=== PATIENT | female | born 1980 | race Caucasian/White ===

== ENCOUNTER → 2017-01-07 | Outpatient (CLI) | payer OTHER | LOC: WI 13:53 | DX: M81.0 Age-related osteoporosis without current pathological fracture (principal) | CPT/HCPCS: 77080 ==

== ENCOUNTER → 2019-01-27 | Outpatient (CLI) | payer OTHER ==
--- NOTE | 2019-01-27 12:21 | WOMENS IMAGING REPORT ---
EXAM DESCRIPTION: BILAT SCREENING MAMMO W/CAD COMPLETED DATE/TIME: 01/27/2019 10:21 am REASON FOR STUDY: Z12.31 ROUTINE BILATERAL SCREENING Z12.31 ENCNTR SCREEN MAMMOGRAM FOR MALIGNANT N EOPLASM OF SERGE COMPARISON: None. TECHNIQUE: Standard craniocaudal and mediolateral oblique views of each breast recorded using digita l acquisition. Additional "push-back" craniocaudal and mediolateral oblique images acquired. LIMITATIONS: None. FINDINGS: IMPLANTS: Bilateral subglandular implants. Findings present which are benign by mammographic criteria. No suspicious masses, calcifications or architectural distortion. Read with the assistance of CAD. .[facility] - R2 Cenova Version 1.3 .[facility] Imaging - R2 Cenova Version 2.1 .[facility] - R2 Cenova Version 2.[address] - R2 Cenova Version 2.4 .[facility], [facility] - R2 [employer] Version 9.2 Benign mammographic findings may include one or more of the following: Smooth masses, popcorn/rim/co arse calcifications, asymmetries, post-procedure changes, and lesions with long-standing stability. IMPRESSION: BENIGN MAMMOGRAPHIC FINDINGS. BIRADS 2 BREAST DENSITY: b. There are scattered areas of fibroglandular density. BIRAD: 2 BENIGN FINDING(S) RECOMMENDATION: ROUTINE SCREENING COMMENT: The patient has been notified of the results by letter per SA requirements. Additional no tification policies are in place for contacting patient with suspicious or incomplete findings. Quality ID #[id number]: The [employer] recommends an annual screening mammogram for women aged 40 years or over. This facility utilizes a reminder system to ensure that all patients receive reminder letters, and/or direct phone calls for appointments. This includes reminders for routine scr eening mammograms, diagnostic mammograms, or other Breast Imaging Interventions when appropriate. Th is patient will be placed in the appropriate reminder system. The [employer] (ACR) has developed recommendations for screening MRI of the breast s in certain patient populations, to be used in conjunction with mammography. Breast MRI surveillanc e may be appropriate for women with more than 20% lifetime risk of developing breast cancer as deter mined by genetic testing, significant family history of the disease, or history of mantle radiation f or Hodgkins Disease. ACR Practice Guidelines 2008. TECHNICAL DOCUMENTATION: FINDING NUMBER: (1) ASSESSMENT: (1) JOB ID: [id number] [employer]- All Rights Reserved Reading location - IP/workstation name: [email or web address]
== END ==
LOC: WI 09:44
PROVIDERS: ATTEND Physician Assistant Medical
DX: Z12.31 Encounter for screening mammogram for malignant neoplasm of breast (principal)
CPT/HCPCS: 77067

== ENCOUNTER 2019-08-20 19:15 | Emergency (ER) | payer OTHER ==
--- NOTE | 2019-08-20 19:50 | ER Document Report ---
ED Medical Screen (RME) - General Chief Complaint: Suicidal Ideation Stated Complaint: PSYCH EVAL/POSSIBLE OVERDOSE Time Seen by Provider: 08/20/19 19:45 Primary Care Provider: TOLU ANSARI PA [Primary Care Provider] - Follow up as needed Mode of Arrival: Ambulatory Information source: Patient Notes: 38-year-old female presented to ED for complaint of having bad thoughts at home. She states she called the mental health hotline to get some support. She states the mental health hotline backtracked called the police and they came and talked with her. She also talked with Dr. Delgadillo on the phone. She states she was willing to come into the emergency room and be evaluated. According to the chief of police with the patient Dr. Delgadillo is the line out paperwork. She states she is depressed and sad due to the coming up events but she states she would not kill herself. She has a daughter to live for. I have greeted and performed a rapid initial assessment of this patient. A comprehensive ED assessment and evaluation of the patient, analysis of test results and completion of medical decision making process will be conducted by an additional ED providers. TRAVEL OUTSIDE OF THE [place] IN LAST 30 DAYS: No Physical Exam - Vital signs Vitals: Temp Pulse Resp BP Pulse Ox 97.8 F 138 H 12 110/88 H 98 08/20/19 19:27 08/20/19 19:27 08/20/19 19:27 08/20/19 19:27 08/20/19 19:27 Course - Vital Signs Vital signs: Temp Pulse Resp BP Pulse Ox 97.8 F 138 H 12 110/88 H 98 08/20/19 19:27 08/20/19 19:27 08/20/19 19:27 08/20/19 19:27 08/20/19 19:27 Doctor's Discharge - Discharge Referrals: TOLU ANSARI PA [Primary Care Provider] - Follow up as needed
[2019-08-20 20:26] LABS: ABSOLUTE BASOPHILS # (AUTO) 0.1 10^3/uL (0.0-0.2); ABSOLUTE EOSINOPHILS # (AUTO) 0.1 10^3/uL (0.0-0.6); ABSOLUTE LYMPHOCYTES (AUTO) 3.1 10^3/uL (0.5-4.7); ABSOLUTE MONOCYTES (AUTO) 0.6 10^3/uL (0.1-1.4); ABSOLUTE NEUT (AUTO) 5.2 10^3/uL (1.7-8.2); BASOPHILS % (AUTO) 1.5 % (0-2); EOSINOPHILS % (AUTO) 1.4 % (0-6); HEMATOCRIT 39.8 % (36.0-47.0); HEMOGLOBIN 13.8 g/dL (12.0-15.5); MEAN CORPUSCULAR HEMOGLOBIN 34.2 pg (27.0-33.4); MEAN CORPUSCULAR HGB CONC 34.6 g/dL (32.0-36.0); MEAN CORPUSCULAR VOLUME 99 fl (80-97); MONOCYTES % (AUTO) 6.1 % (3-13); PLATELET COUNT 253 10^3/uL (150-450); RED BLOOD COUNT 4.04 10^6/uL (3.72-5.28); RED CELL DISTRIBUTION WIDTH 14.3 % (11.5-14.0); TOTAL CELLS COUNTED % (AUTO) 100 %; WHITE BLOOD COUNT 9.1 10^3/uL (4.0-10.5)
[2019-08-20 20:31] LABS: APPEARANCE,URINE CLEAR; BILIRUBIN,URINE NEGATIVE (NEGATIVE); COLOR,URINE STRAW; GLUCOSE, URINE NEGATIVE (NEGATIVE); KETONES,URINE NEGATIVE (NEGATIVE); LEUKOCYTE ESTERASE,URINE SMALL (NEGATIVE); NITRITE,URINE NEGATIVE (NEGATIVE); PROTEIN,URINE NEGATIVE (NEGATIVE); URINE SPECIFIC GRAVITY 1.004; UROBILINOGEN,URINE NEGATIVE mg/dL (<2.0)
[2019-08-20 20:44] LABS: ALBUMIN 4.7 g/dL (3.5-5.0); ALCOHOL 145 mg/dL (NONE DETECTED); ALKALINE PHOSPHATASE 101 U/L (38-126); ANION GAP 15 (5-19); ASPARTATE AMINO TRANSFERASE 27 U/L (14-36); BILIRUBIN,DIRECT 0.2 mg/dL (0.0-0.4); BILIRUBIN,TOTAL 0.2 mg/dL (0.2-1.3); BLOOD UREA NITROGEN 11 mg/dL (7-20); CALCIUM 9.4 mg/dL (8.4-10.2); CARBON DIOXIDE 21 mmol/L (22-30); CHLORIDE 107 mmol/L (98-107); GLUCOSE 102 mg/dL (75-110); POTASSIUM 4.3 mmol/L (3.6-5.0); URINE AMPHETAMINES SCREEN NEGATIVE; URINE BARBITURATES SCREEN NEGATIVE; URINE BENZODIAZEPINES SCREEN NEGATIVE; URINE COCAINE SCREEN NEGATIVE; URINE MARIJUANA (THC) SCREEN NEGATIVE; URINE METHADONE SCREEN NEGATIVE; URINE PHENCYCLIDINE SCREEN NEGATIVE
[2019-08-20 20:46] LABS: ACETAMINOPHEN < 10 ug/mL (10-30); SALICYLATE < 1.0 mg/dL (2.0-20.0)
[2019-08-20] MEDS ORDERED: VENLAFAXINE HCL 37.5 MG CAP.SR.24H PO ONE (21:30)
[2019-08-20] MEDS ORDERED: BUSPIRONE HCL 10 MG TABLET PO ONE (21:30)
[2019-08-20] MEDS ORDERED: CLONIDINE HCL 0.1 MG TABLET PO ONE (21:30)
[2019-08-20] MEDS ORDERED: TRAZODONE HCL 50 MG TABLET PO ONE (21:31)
--- NOTE | 2019-08-20 21:52 | EKG REPORT ---
SEVERITY:- OTHERWISE NORMAL ECG - SINUS TACHYCARDIA : Confirmed by: Joaquín Garcia MD 20-Aug-2019 21:52:13
[2019-08-20] MEDS ORDERED: NORMAL SALINE 1000 ML 1,000 ML IV ONE (22:09)
--- NOTE | 2019-08-21 02:12 | ER Document Report ---
Entered by LONI DORANTES SCRIBE 08/20/192058 Acting as scribe for:REGINALD KNIGHT DO ED Psych Disorder / Suicide - General Chief Complaint: Suicidal Ideation Stated Complaint: PSYCH EVAL/POSSIBLE OVERDOSE Time Seen by Provider: 08/20/19 19:45 Primary Care Provider: TOLU ANSARI PA [Primary Care Provider] - Follow up as needed Mode of Arrival: Ambulatory Information source: Patient Notes: Patient is a 38-year-old female that presents to the emergency department today with complaints of depression. Patient states [place] and "seeing the [employer] uniforms got her depressed". Patient states that she went back home and watched [employer] movies which caused her to become more depressed. Patient states she called the crisis line who then alerted the police. Patient was brought in by MAXINE on IVC paperwork. TRAVEL OUTSIDE OF THE [place] IN LAST 30 DAYS: No - Related Data Allergies/Adverse Reactions: prochlorperazine [From Compazine] Allergy (Verified 08/20/19 19:47) Home Medications: seroquel trazadone and ambien Past Medical History - General Information source: Patient - Social History Smoking Status: Never Smoker Cigarette use (# per day): No Chew tobacco use (# tins/day): No Frequency of alcohol use: Occasional Drug Abuse: None Lives with: Family Family History: Reviewed & Not Pertinent Patient has suicidal ideation: No Patient has homicidal ideation: No Psychiatric Medical History: Reports: Hx Depression Review of Systems - Review of Systems Constitutional: No symptoms reported EENT: No symptoms reported Cardiovascular: No symptoms reported Respiratory: No symptoms reported Gastrointestinal: No symptoms reported Genitourinary: No symptoms reported Female Genitourinary: No symptoms reported Musculoskeletal: No symptoms reported Skin: No symptoms reported Hematologic/Lymphatic: No symptoms reported Neurological/Psychological: See HPI, Depression, Suicidal ideation -: Yes All other systems reviewed and negative Physical Exam - Vital signs Vitals: Temp Pulse BP Pulse Ox 97.8 F 138 H 110/88 H 97 08/20/19 19:25 08/20/19 19:25 08/20/19 19:25 08/20/19 19:25 Interpretation: Normal - General General appearance: Appears well, Alert - HEENT Head: Normocephalic, Atraumatic Eyes: Normal Pupils: PERRL - Respiratory Respiratory status: No respiratory distress Chest status: Nontender Breath sounds: Normal Chest palpation: Normal - Cardiovascular Rhythm: Regular Heart sounds: Normal auscultation Murmur: No - Abdominal Inspection: Normal Distension: No distension Bowel sounds: Normal Tenderness: Nontender Organomegaly: No organomegaly - Back Back: Normal, Nontender - Extremities General upper extremity: Normal inspection, Nontender, Normal color, Normal ROM, Normal temperature General lower extremity: Normal inspection, Nontender, Normal color, Normal ROM, Normal temperature, Normal weight bearing. No: Danilo's sign - Neurological Neuro grossly intact: Yes Cognition: Normal Orientation: AAOx4 Karan Coma Scale Eye Opening: Spontaneous Karan Coma Scale Verbal: Oriented Karan Coma Scale Motor: Obeys Commands Karan Coma Scale Total: 15 Speech: Normal Motor strength normal: LUE, RUE, LLE, RLE Sensory: Normal - Psychological Associated symptoms: Normal mood, Flat affect - Skin Skin Temperature: Warm Skin Moisture: Dry Skin Color: Normal Course - Re-evaluation Re-evalutation: 08/21/19 Patient is a 38-year-old female who called a helpline because she is feeling depressed and suicidal. Brought in by law enforcement. Patient has been evaluated by mental health and placed on involuntary commitment paperwork. She is otherwise medically stable. Some alcohol intoxication noted. Patient is pleasant and willing to stay here tonight. Will be reevaluated by mental health in the morning. - Vital Signs Vital signs: Temp Pulse Resp BP Pulse Ox 97.6 F 105 H 16 91/59 L 96 08/20/19 20:52 08/20/19 20:52 08/20/19 20:52 08/20/19 20:52 08/20/19 20:52 - Laboratory Result Diagrams: 08/20/19 20:07 08/20/19 20:07 Laboratory results interpreted by me: 08/20/19 08/20/19 08/20/19 20:07 20:07 20:07 MCV 99 H MCH 34.2 H RDW 14.3 H Carbon Dioxide 21 L Ur Leukocyte Esterase SMALL H Salicylates < 1.0 L Acetaminophen < 10 L Discharge - Discharge Clinical Impression: Depression Qualifiers: Depression Type: unspecified Qualified Code(s): F32.9 - Major depressive d isorder, single episode, unspecified Alcohol intoxication Qualifiers: Complication of substance-induced condition: uncomplicated Qualified Code(s): F10.920 - Alcohol use, unspecified with intoxication, uncomplicated Condition: Stable Disposition: OTHER Referrals: TOLU ANSARI PA [Primary Care Provider] - Follow up as needed I personally performed the services described in the documentation, reviewed and edited the documentation which was dictated to the scribe in my presence, and it accurately records my words and actions.
--- NOTE | 2019-08-21 09:45 | PSYCHOLOGICAL NOTE ---
Psych Note - Psych Note Date seen by psych provider: 08/21/19 Time seen by psych provider: 08:05 Psych Note: Reason for Consult: suicidal ideation Consent permissions: Con, 38-year-old female presented to ED for complaint of having bad thoughts at home. She states she called the mental health hotline to get some support. She states the mental health hotline backtracked called the police and they came and talked with her. Patient disclosed that she has significant difficulties with her anxiety in addition to identity crisis issues now that she is retired from the . She reports the was "my calling" and while she is 100% [place] medically retired, she still feels as if she failed. She identifies this because she only made it 17 years instead of finishing out 20 years. She discloses that it has been difficult to staying in the local area because the base so she typically stays away from going on base knowing that this can be a trigger for her. She reports that she stays in the local area for her daughter who is 19 years old in college. She identifies that yesterday she had to go on base to make a star card payment and feels this, in addition to receiving multiple emails and text messages from friends and loved ones about the upcoming veterans holiday triggered her increase of depression. She reports that she was feeling "really down" so reached out to the crisis line because her outpatient mental h [facility] provider has always reinforced reaching out to the crisis line. Patient identifies that when she did reach out to the crisis line she was crying significantly and was honest about her feelings with them. After hanging up, please showed up at her door. She discloses that she would "never do anything to hurt myself, I have my daughter I would never do that." She continued to report that she is currently from her however he lives across the street, they speak multiple times a day and identifies him as her strongest support. She disclosed the [facility] to the local community so she had a provider that could see her more frequently. Patient currently receives both medication management and therapy at [facility]. She reports that she drinks a couple times a week however does not typically like to drink because she is unable to take her medication when she drinks. Patient confirms she did take her evening medication last night and identifies taking 2 of her Ambien because 1 is not enough. Clinician notes patient was surprised on her (BAL) blood alcohol level. Clinician conducted psychoeducation on alcohol and prescription medication misuse. Clinician spoke with patient's who reports that the patient goes through depression spells because of having to get out of the and dealing with her cancer and hysterectomy. He reports that the patient has "ups and downs like everyone." He disclosed that he saw her yesterday and spoke to her multiple times throughout the day and was in good spirits. He reports that she did states she had to go on base to pay a bill and knows that she avoids going on base because this can be a trigger for her. He reports that towards the end of the day she was starting to put herself down so he attempted to reinforce positive self talk. "She thinks that she is failed because she did not make a 20 years but I do not see it that way and I tried to remind her of that." He denies any concerns of the patient harming herself however identifies concern that the patient has to use sleeping medication; "she has difficulty sleeping so takes meds and I do not think that is great but I am not a doctor." He reports they are currently right now so does not know how much the patient is currently drinking however states that his never was an issue in the past. Patient is alert and orientated to person, place, time and circumstance. Mood is euthymic with congruent affect as evidenced by smiling engaging with clinician. Patient denies suicidal and homicidal ideation. Delusions are absent and behaviors congruent with an intact reality based presentation i.e. organized and linear thought process. Eye contact is well-maintained. Conversational speech is within normal rate, tone and prosody. Intellectual abilities appear to be within the average range. Attention and concentration are good. Insight, judgment, impulse control are fair. check in was conducted with patient; at bedside per patient's request Patient provides consent for the to go to her home to ensure all old prescriptions are removed. He confirms he would like to be part of patient's pl an of care i.e. no access to medications weapons and follow through with mental health recommendations. Clinician conducted psychoeducation on the importance of taking medications as directed and to refrain from alcohol. Patient confirms he will move back into the home to assist the patient. Patient reports tomorrow she returned to work which will assist in decreasing time alone. She c ontinued to disclose that on Friday she plans to go to [place] with friends so she is not alone throughout the holiday. Patient also has plans of going to [place] September 10 for her grandmother's birthday democrat. Diagnosis: Posttraumatic stress disorder per history provided by patient Medication recommendations per [facility]'s contracted psychiatrist Dr. Lea MAURICIO are as follows Please discontinue Ambien, Seroquel and trazodone please decrease Cymbalta to 30mg daily for 7 days then discontinue Please start Effexor 37.5mg daily for 7 days then increase to twice daily Please start Zyprexa 2.5 mg twice daily prazosin 1 mg nightlydue to not having prazosin in hospital formulary can be replaced with clonidine 1 mg nightly BuSpar 5 mg every morning and 10 mg nightly Impression\\plan: Patient is recommended for rescind of IVC and is cleared from acute psychiatric services. Patient presented after increased in depression from yearly stressor i.e. one year anniversary of medical discharge from the and . Patient demonstrated forward thinking and identifying both plan of care and future plans. Patient's discloses wanting to be part of patient's plan of care i.e. no access to medications weapons and follow through with mental health recommendations. He confirms to move back into the home to assist the patient and reports he will ensure the patient does not have access to old prescription medications. New medication recommendations have been provided. Patient is recommended to follow-up with outpatient mental health services for both medication management and therapeutic services. Dr. Delgadillo was consulted to care management of this patient; attending physicians in agreement with recommendations and disposition.
[2019-08-21 13:22] LABS: FREE T3 3.38 pg/mL (2.77-5.27); FREE T4 (FREE THYROXINE) 1.07 ng/dL (0.78-2.19)
[2019-08-21 13:36] LABS: THYROID STIMULATING HORMONE 4.51 uIU/mL (0.47-4.68)
[2019-08-21 14:24] VITALS: BP 113/82
== END 2019-08-21 15:11 | disposition home or self-care (01) ==
LOC: ER 19:15
DX: F43.10 Post-traumatic stress disorder, unspecified (principal); R45.851 Suicidal ideations; F10.120 Alcohol abuse with intoxication, uncomplicated; F32.9 Major depressive disorder, single episode, unspecified; Z79.899 Other long term (current) drug therapy; Z63.5 Disruption of family by separation and divorce; Z88.8 Allergy status to other drugs, medicaments and biological substances
CPT/HCPCS: 93005; 99285; 96360; 96361; 36415; 84439; 80307 ×4; 84443; 84703; 85025; 80053; 81001; 84481; 93010; J3490; J7030

== ENCOUNTER 2019-11-12 10:47 | Emergency (ER) | payer OTHER ==
[2019-11-12] MEDS ORDERED: ONDANSETRON 4 MG TAB.RAPDIS PO ONE (11:21)
[2019-11-12] MEDS ORDERED: PREDNISONE 20 MG TABLET PO ONE (11:21)
[2019-11-12] MEDS ORDERED: IPRATROPIUM/ALBUTEROL 0.5-2.5 MG/3 ML AMPUL NEB ONE ×2 (11:21→14:11)
--- NOTE | 2019-11-12 11:23 | ER Document Report ---
ED Medical Screen (RME) - General Chief Complaint: Flu Symptoms Stated Complaint: COUGHING/CONGESTION/FEVER Time Seen by Provider: 11/12/19 11:15 Primary Care Provider: TOLU ANSARI PA [Primary Care Provider] - Follow up as needed Information source: Patient Notes: Patient presents complaining of cough for the past 5 days. Patient states that she has had shortness of breath with chest pain and blood in her sputum. Patient also reports nausea vomiting and diarrhea. Patient was seen in urgent care 4 days ago and placed on amoxicillin. Patient states because of the vomiting she does not feel that she has been able to keep the medications down. I have greeted and performed a rapid initial assessment of this patient. A comprehensive ED assessment and evaluation of the patient, analysis of test results and completion of the medical decision making process will be conducted by additional ED providers. TRAVEL OUTSIDE OF THE U.S. IN LAST 30 DAYS: No - Related Data Allergies/Adverse Reactions: prochlorperazine [From Compazine] Allergy (Verified 08/20/19 19:47) Past Medical History Psychiatric Medical History: Reports: Hx Depression Physical Exam - Vital signs Vitals: Temp Pulse Resp BP Pulse Ox 99.4 F 105 H 16 128/83 H 96 11/12/19 11:06 11/12/19 11:06 11/12/19 11:06 11/12/19 11:06 11/12/19 11:06 - Respiratory Respiratory status: No respiratory distress Breath sounds: Productive cough, Wheezing - Cardiovascular Rhythm: Tachycardia Heart sounds: S1 appreciated, S2 appreciated Course - Vital Signs Vital signs: Temp Pulse Resp BP Pulse Ox 99.4 F 105 H 16 128/83 H 96 11/12/19 11:06 11/12/19 11:06 11/12/19 11:06 11/12/19 11:06 11/12/19 11:06 Doctor's Discharge - Discharge Referrals: TOLU ANSARI PA [Primary Care Provider] - Follow up as needed
--- NOTE | 2019-11-12 12:10 | RADIOLOGY REPORT (SQ) ---
EXAM DESCRIPTION: CHEST 2 VIEWS COMPLETED DATE/TIME: 11/12/2019 11:59 am REASON FOR STUDY: cough, blood in sputum COMPARISON: None. EXAM PARAMETERS: NUMBER OF VIEWS: two views TECHNIQUE: PA and lateral views of the chest were obtained. RADIATION DOSE: NA LIMITATIONS: none FINDINGS: LUNGS AND PLEURA: No consolidation, pleural effusion or pneumothorax. MEDIASTINUM AND HILAR STRUCTURES: No mediastinal or hilar contour abnormality. HEART AND VASCULAR STRUCTURES: The cardiac silhouette and pulmonary vasculature are within normal gauthier its. BONES: No acute findings. HARDWARE: None in the chest. OTHER: No other finding. IMPRESSION: No acute cardiopulmonary process. TECHNICAL DOCUMENTATION: JOB ID: [id number]- All Rights Reserved Reading location - IP/workstation name: [email or web address]
[2019-11-12 12:18] LABS: ABSOLUTE LYMPHOCYTES (AUTO) 0.8 10^3/uL (0.5-4.7); ABSOLUTE MONOCYTES (AUTO) 0.7 10^3/uL (0.1-1.4); ABSOLUTE NEUT (AUTO) 5.2 10^3/uL (1.7-8.2); BASOPHILS % (AUTO) 0.6 % (0-2); EOSINOPHILS % (AUTO) 0.6 % (0-6); HEMATOCRIT 42.2 % (36.0-47.0); HEMOGLOBIN 14.9 g/dL (12.0-15.5); MEAN CORPUSCULAR HEMOGLOBIN 35.9 pg (27.0-33.4); MEAN CORPUSCULAR HGB CONC 35.3 g/dL (32.0-36.0); MEAN CORPUSCULAR VOLUME 102 fl (80-97); MONOCYTES % (AUTO) 9.6 % (3-13); PLATELET COUNT 219 10^3/uL (150-450); RED BLOOD COUNT 4.15 10^6/uL (3.72-5.28); SEGMENTED NEUTROPHILS % (AUTO) 77.2 % (42-78); TOTAL CELLS COUNTED % (AUTO) 100 %; WHITE BLOOD COUNT 6.8 10^3/uL (4.0-10.5)
[2019-11-12 12:47] LABS: ALBUMIN 4.9 g/dL (3.5-5.0); ALKALINE PHOSPHATASE 125 U/L (38-126); ANION GAP 14 (5-19); ASPARTATE AMINO TRANSFERASE 60 U/L (14-36); BILIRUBIN,DIRECT 0.4 mg/dL (0.0-0.4); BILIRUBIN,TOTAL 0.5 mg/dL (0.2-1.3); BLOOD UREA NITROGEN 11 mg/dL (7-20); CARBON DIOXIDE 25 mmol/L (22-30); CHLORIDE 99 mmol/L (98-107); GLUCOSE 102 mg/dL (75-110); POTASSIUM 4.9 mmol/L (3.6-5.0); TOTAL PROTEIN 8.6 g/dL (6.3-8.2)
--- NOTE | 2019-11-12 13:39 | ER Document Report ---
ED General - General Chief Complaint: Cold Symptoms Stated Complaint: COUGHING/CONGESTION/FEVER Time Seen by Provider: 11/12/19 11:15 Primary Care Provider: TOLU ANSARI PA [Primary Care Provider] - Follow up in 3-5 days TRAVEL OUTSIDE OF THE [place] IN LAST 30 DAYS: No - HPI Notes: 39-year-old female to the emergency department with complaints of productive cough with blood-streaked sputum, shortness of breath, chest congestion, chest pain, fevers that have been ongoing since Friday. She states that she started to feel poorly on Friday and on Friday she decided to see a physician at urgent care. She states she was placed on amoxicillin and given Tessalon for cough. However she is gotten worse since then. She states she has had a fever T-max of 101. She states that she coughs so hard that she will vomit. She denies any diarrheas. She used to be on a topical hormonal patch several months ago but has not been on it recently. She takes no other oral contraceptives or hormone replacement therapy. She does not have any female organs as she had precancerous cells on her cervix. She states that she has never actually been diagnosed with neo cancer.. She states that when she tries to lay flat she feels very short of breath and congested and cannot rest at all at night. She states that she has not recently been on long distance travel or had recent moeller rgery. She states that she is never had a clot in her legs. - Related Data Allergies/Adverse Reactions: prochlorperazine [From Compazine] Allergy (Verified 11/12/19 11:29) Home Medications: amoxicillian. steriod tritrate pack 4th day Past Medical History - General Information source: Patient - Social History Smoking Status: Never Smoker Frequency of alcohol use: Occasional Drug Abuse: None Lives with: Family Family History: Reviewed & Not Pertinent Patient has suicidal ideation: No Patient has homicidal ideation: No Psychiatric Medical History: Reports: Hx Depression Review of Systems - Review of Systems Constitutional: Chills, Fever, Malaise EENT: Nose congestion, Throat pain. denies: Ear pain Cardiovascular: See HPI, Chest pain. denies: Dyspnea, Syncope, Dizziness, Lightheaded Respiratory: See HPI, Cough, Hemoptysis, Short of breath Gastrointestinal: See HPI, Nausea, Vomiting. denies: Abdominal pain, Diarrhea Genitourinary: No symptoms reported Female Genitourinary: No symptoms reported Musculoskeletal: Muscle pain - Body aches Skin: No symptoms reported Hematologic/Lymphatic: No symptoms reported Neurological/Psychological: No symptoms reported -: Yes All other systems reviewed and negative Physical Exam - Vital signs Vitals: Temp Pulse Resp BP Pulse Ox 99.4 F 105 H 16 128/83 H 96 11/12/19 11:06 11/12/19 11:06 11/12/19 11:06 11/12/19 11:06 11/12/19 11:06 Interpretation: Normal - General General appearance: Alert In distress: None Notes: Patient appears like she does not feel well but she is not in any acute distress - HEENT Head: Normocephalic, Atraumatic Eyes: Normal Pupils: PERRL Ears: Normal External canal: Normal Tympanic membrane: Normal. No: Hemotympanum, Injected, Perforation, Purulent ef fusion, Retracted, Serous effusion Sinus: Normal Nasal: Other - Positive allergic salute. Bilateral nares are erythematous and edematous. It is evident that patient has been blowing her nose quite a bit. Mouth/Lips: Normal Mucous membranes: Normal Pharynx: Erythema - There is posterior oropharyngeal erythema without exudates. There is no Hans's angina; there is no drooling. There is no voice change. Airway is grossly patent. No: Peritonsillar abscess, Retropharyngeal abscess, Tonsillar hypertrophy - ., Uvular edema, Potential airway comprom. Neck: Normal, Supple. No: Lymphadenopathy, Meningismus - Respiratory Respiratory status: No respiratory distress. No: Tachypnea Chest status: Tender - Mild tenderness to palpation over the chest wall with no crepitus or step-off., Pain on movement, Pain with cough, Pain with deep breathing - Poor inspiratory effort due to pain with big deep breath. No: Accessory muscle use Breath sounds: Decreased air movement. No: Rales, Rhonchi, Stridor, Wheezing Chest palpation: Normal - Cardiovascular Rhythm: Regular Heart sounds: Normal auscultation Murmur: No Notes: No pitting edema - Abdominal Inspection: Normal Distension: No distension Bowel sounds: Normal Tenderness: Nontender. No: Tender, McBurney's point, Griffin's sign, Guarding, Rebound Organomegaly: No organomegaly - Back Back: Normal, Nontender. No: CVA tenderness - Extremities General upper extremity: Normal inspection, Nontender, Normal color, Normal ROM, Normal temperature General lower extremity: Normal inspection, Nontender, Normal color, Normal ROM, Normal temperature, Normal weight bearing. No: Danilo's sign - Neurological Neuro grossly intact: Yes Cognition: Normal Orientation: AAOx4 Karan Coma Scale Eye Opening: Spontaneous Karan Coma Scale Verbal: Oriented Karna Coma Scale Motor: Obeys Commands Karan Coma Scale Total: 15 Speech: Normal Cranial nerves: Normal Cerebellar coordination: Normal Motor strength normal: LUE, RUE, LLE, RLE Additional motor exam normals: Equal accident report clerk Sensory: Normal - Psychological Associated symptoms: Normal affect, Normal mood - Skin Skin Temperature: Warm Skin Moisture: Dry Skin Color: Normal Course - Re-evaluation Re-evalutation: Patient to the emergency department with progressively worsening cough, fever, chest pain, shortness of breath. She is slightly tachypneic when she came in as well as tachycardic. She has decreased breath sounds throughout but is not wheezing or having any rhonchi. Noted lab work which is fairly reassuring and chest x-ray is negative. She has low risk for DVT/PE however she cannot rule out for PERC score because of her tachycardia and tachypnea. Will run d-dimer and if elevated proceed with CTA. Noted d-dimer just out of range. We will go ahead and order CTA of the chest. Patient is feeling better after breathing treatments steroids Noted CTA reading which is negative for PE or any other acute cardiopulmonary process. Likely this is a flu syndrome-she is out of range for Tamiflu. Do not think that testing patient for the flu will add any benefit to her work-up here today. Do not think that antibiotics or changing her antibiotics will make her symptoms improve. I have encouraged her to complete the steroid Dosepak that she was given at urgent care. We will send her home with cough medicine that will help her rest. I have encouraged her to push fluids such as Gatorade, Pedialyte. I will have her follow-up with her primary care physician. She is to return immediately if any worsening symptoms such as worsening chest pain, significantly short of breath, passing out, any other concerning symptoms. Patient agrees with the plan. - Vital Signs Vital signs: Temp Pulse Resp BP Pulse Ox 98.8 F 85 14 115/81 98 11/12/19 17:32 11/12/19 17:32 11/12/19 17:32 11/12/19 17:32 11/12/19 17:32 - Laboratory Result Diagrams: 11/12/19 11:50 11/12/19 11:50 Laboratory results interpreted by me: 11/12/19 11/12/19 11/12/19 11:50 11:50 14:30 MCV 102 H MCH 35.9 H RDW 16.0 H Lymph % (Auto) 12.0 L D-Dimer 0.56 H AST 60 H Total Protein 8.6 H - Diagnostic Test Radiology reviewed: Image reviewed, Reports reviewed - EKG Interpretation by Me Additional EKG results interpreted by me: 11/12/19 Rate: 89, rhythm: Sinus, interpretation: No STEMI. Nonspecific T wave changes that are unchanged from prior on August 20, 2019. Normal axis, no LVH Discharge - Discharge Clinical Impression: Flu-like symptoms, Cough, Chest pain on respiration Condition: Stable Disposition: HOME, SELF-CARE Instructions: Cough Suppressant & Expectorant Medications, Influenza ([facility]) Additional Instructions: PUSH FLUIDS. REST AT HOME. FOLLOW UP WITH PRIMARY CARE. RETURN IF WORSE. Prescriptions: Albuterol Sulfate [Albuterol Sulfate Hfa] 2 puff IH Q4H #1 [email or web address] Hydrocodone/Chlorphen P-Stirex [Hydrocodone-Chlorpheniram Susp] 5 ml PO Q12 #60 ml Forms: Return to Work Referrals: TOLU ANSARI PA [Primary Care Provider] - Follow up in 3-5 days
[2019-11-12] MEDS ORDERED: NORMAL SALINE 1000 ML 1,000 ML IV ONE (14:10)
[2019-11-12 16:05] LABS: APPEARANCE,URINE CLEAR; BILIRUBIN,URINE NEGATIVE (NEGATIVE); COLOR,URINE YELLOW; GLUCOSE, URINE NEGATIVE (NEGATIVE); KETONES,URINE NEGATIVE (NEGATIVE); PROTEIN,URINE NEGATIVE (NEGATIVE); URINE SPECIFIC GRAVITY 1.011; UROBILINOGEN,URINE NEGATIVE mg/dL (<2.0)
--- NOTE | 2019-11-12 16:38 | RADIOLOGY REPORT (SQ) ---
EXAM DESCRIPTION: CTA CHEST COMPLETED DATE/TIME: 11/12/2019 4:20 pm REASON FOR STUDY: SOB, coughing up blood COMPARISON: PA and lateral views of the chest from 11/12/2019. TECHNIQUE: CT scan of the chest performed using helical scanning technique with dynamic intravenous contrast injection. Images reviewed with lung, soft tissue and bone windows. Reconstructed coronal and sagittal MPR images reviewed. Additional 3 dimensional post-processing performed to develop Maximal Intensity Projection images (ND P). All images stored on PACS. All CT scanners at this facility use dose modulation, iterative reconstruction, and/or weight based d osing when appropriate to reduce radiation dose to as low as reasonably achievable (ALARA). [facility]: Dose Right [facility]: CareDose [facility]: Dose Right [facility]: Teradose 4D [facility]: CV Ingenuity CONTRAST TYPE AND DOSE: Contrast/concentration: Isovue 350.00 mg/ml; Total Contrast Delivered: 59.0 ml; Total Saline Delivered: 80.0 ml Contrast bolus optimized for the pulmonary arteries. RENAL FUNCTION: Creatinine 0.85 milligrams/deciliter. RADIATION DOSE: CT Rad equipment meets quality standard of care and radiation dose reduction techniq ues were employed. CTDIvol: 9.9 - 14.3 mGy. DLP: 521 mGy-cm. . LIMITATIONS: None. FINDINGS: LUNGS AND PLEURA: The trachea main bronchi are patent. There is no consolidation, pleural effusion, ground-glass opacification, pleural effusion or pneumothorax. AORTA AND GREAT VESSELS: Evaluation is limited as the contrast bolus was optimized for evaluation of the pulmonary arteries. There is no thoracic aortic dissection or aneurysm. HEART: No cardiomegaly or pericardial effusion. PULMONARY ARTERIES: No pulmonary embolus. HILAR AND MEDIASTINAL STRUCTURES: No mass or adenopathy. HARDWARE: None in the chest. UPPER ABDOMEN: No acute findings. THYROID AND OTHER SOFT TISSUES: No masses or adenopathy. BONES: No acute findings. 3D MIPS: Confirm above findings. OTHER: Breast implants. IMPRESSION: No pulmonary embolus and no acute cardiopulmonary process. COMMENT: Quality ID # [id number]: Final reports with documentation of one or more dose reduction techniques (e.g., Automated exposure control, adjustment of the mA and/or kV according to patient size, use of iterative reconstruction technique) TECHNICAL DOCUMENTATION: JOB ID: [id number]- All Rights Reserved Reading location - IP/workstation name: [email or web address]
[2019-11-12 17:34] VITALS: BP 115/81
--- NOTE | 2019-11-12 17:42 | EKG REPORT ---
SEVERITY:- NORMAL ECG - SINUS RHYTHM : Confirmed by: Joaquín Garcia MD 12-Nov-2019 17:41:21
== END 2019-11-12 17:32 | disposition home or self-care (01) ==
LOC: ER 10:47
DX: J11.1 Influenza due to unidentified influenza virus with other respiratory manifestations (principal); R07.1 Chest pain on breathing; R04.2 Hemoptysis; R09.81 Nasal congestion; R50.9 Fever, unspecified; R06.02 Shortness of breath; R09.89 Other specified symptoms and signs involving the circulatory and respiratory systems; R53.81 Other malaise; R11.2 Nausea with vomiting, unspecified; Z88.8 Allergy status to other drugs, medicaments and biological substances
CPT/HCPCS: 93005; 94640 ×2; 99284; 96360; 36415; 83690; 85025; 80053; 81001; 85379; 71046; 71275; 93010; S0119; J7512; J7030; J7620

== ENCOUNTER 2020-05-07 22:34 | Emergency (ER) | payer OTHER ==
[2020-05-07] MEDS ORDERED: KETOROLAC TROMETHAMINE INJ/PF 30 MG/1 ML SDV IV ONE (23:35)
[2020-05-07] MEDS ORDERED: NORMAL SALINE 1000 ML 1,000 ML IV ONE (23:36)
--- NOTE | 2020-05-07 23:59 | ER Document Report ---
Entered by FRANCISCO CHENG SCRIBE 05/07/20 0158 Acting as scribe for:NAKUL PARKS IV, MD ED Extremity Problem, Upper - General Stated Complaint: FALL,SHOULDER PAIN Time Seen by Provider: 05/07/20 23:20 Primary Care Provider: TOLU ANSARI PA [Primary Care Provider] - Follow up as needed Mode of Arrival: Medic Information source: Patient Notes: This 39 year old female patient brought in by EMS presents to the ED today with complaints of right shoulder pain status post fall that occurred prior to arrival. Patient states she fell because of ETOH. She admits to drinking about x3-4 glasses of wine per ED nurse. Patient describes a "crunchy crystals" sensation when she moves her right arm. TRAVEL OUTSIDE OF THE [place] IN LAST 30 DAYS: No - Related Data Allergies/Adverse Reactions: prochlorperazine [From Compazine] Allergy (Verified 11/12/19 11:29) Past Medical History - General Information source: Patient - Social History Smoking Status: Unknown if Ever Smoked Smoking Education Provided: No Frequency of alcohol use: Social Family History: Reviewed & Not Pertinent Patient has suicidal ideation: No Patient has homicidal ideation: No Psychiatric Medical History: Reports: Hx Depression Review of Systems - Review of Systems Constitutional: No symptoms reported EENT: No symptoms reported Cardiovascular: No symptoms reported Respiratory: No symptoms reported Gastrointestinal: No symptoms reported Genitourinary: No symptoms reported Female Genitourinary: No symptoms reported Musculoskeletal: See HPI, Joint pain Skin: No symptoms reported Hematologic/Lymphatic: No symptoms reported Neurological/Psychological: No symptoms reported -: Yes All other systems reviewed and negative Physical Exam - Vital signs Vitals: Resp BP Pulse Ox 15 90/67 L 96 05/07/20 23:07 05/07/20 23:07 05/07/20 23:07 - General General appearance: Alert In distress: None - HEENT Head: Normocephalic, Atraumatic Eyes: Normal Pupils: PERRL - Respiratory Respiratory status: No respiratory distress Chest status: Nontender Breath sounds: Normal Chest palpation: Normal - Cardiovascular Rhythm: Regular Heart sounds: Normal auscultation Murmur: No Friction rub: No Gallop: None auscultated Normal capillary refill: Yes - < 2 seconds in digits of right hand - Abdominal Inspection: Normal Distension: No distension Bowel sounds: Normal Tenderness: Nontender - Abdomen soft Organomegaly: No organomegaly - Back Back: Normal, Nontender - Extremities General lower extremity: Normal inspection Shoulder: Limited ROM - No active motion in RUE, Other - Step-off noted to AC joint on the right side, Anterior fullness to right deltoid Hand: Other - Sensation and motor grossly intact to digits of right hand - Neurological Neuro grossly intact: Yes - Psychological Associated symptoms: Normal affect, Normal mood - Skin Skin Temperature: Warm Skin Moisture: Dry Skin Color: Normal Course - Re-evaluation Re-evalutation: 05/08/20 01:19 Results of ED MSE discussed with patient. All questions were answered prior to discharge. Emergency signs and symptoms, reasons to return to the emergency department discussed with patient. - Vital Signs Vital signs: Temp Pulse Resp BP Pulse Ox 98.7 F 18 94/77 L 98 05/07/20 23:33 05/08/20 00:31 05/08/20 00:31 05/08/20 00:31 - Diagnostic Test Radiology reviewed: Reports reviewed Procedures - Immobilization Right Arm Time completed: 02:00 - right humeral neck fracture Pre-Proc Neuro Vasc Exam: Normal Immobilizer type: Long arm posterior, Shoulder immobilizer Performed by: PCT Post-Proc Neuro Vasc Exam: Normal Alignment checked and good: Yes Discharge - Discharge Clinical Impression: Closed right humeral fracture Qualifiers: Encounter type: initial encounter Humerus Location: surgical neck Fracture morphology: unspecified fracture morphology Fracture alignment: displaced Qualified Code(s): S42.211A - Unspecified displaced fracture of surgical neck of right humerus, initial encounter for closed fracture Condition: Stable Disposition: HOME, SELF-CARE Instructions: Oral Narcotic Medication ([facility]) Additional Instructions: Return to the Emergency Department without delay if any worse. HOME CARE INSTRUCTIONS & INFORMATION: Thank you for choosing us for your medical needs. We hope you're satisfied with the care you received. After you leave, you must properly care for your problem and, at the same time, observe its progress. Any condition can change. Some illnesses can change rapidly over hours or days. If your condition worsens, return to the Emergency Department or see your physician promptly. ABOUT YOUR X-RAYS AND EKG'S: If you had an EKG or X-rays taken, they have been read by the Emergency Physician. The X-rays and EKG's will also be read by a Radiologist or Director Clinical Data within 24 hours. If discrepancies are noted, you will be notified by telephone. Please be certain the ED has a correct telephone number & address where you can be reached. Also, realize that some fractures or abnormalities do not show up on initial X-rays. If your symptoms continue, see your physician. ABOUT YOUR LABORATORY TEST: If you had laboratory tests, the results have been reviewed by the Emergency Physician. Some test results (for example cultures) may not be available for several days. You will be contacted if any test result shows you need additional treatment. Please be certain the ED has a correct telephone number and address where you can be reached. ABOUT YOUR MEDICATIONS: You will receive instructions on how to take your medicine on the prescription label you receive. Additional information may be provided by the Pharmacy. If you have questions afterwards, call the ED for clarification or further instructions. Some prescribed medications may cause drowsiness. Do not perform tasks such as driving a car or operating machinery without consulting your Pharmacist. If you feel you need a refill of pain medication, your condition will need re-evaluation. Please do not call for a refill of any medication. ABOUT YOUR SIGNATURE: Signature of this document acknowledges to followin. Understanding that you received emergency treatment and that you may be released before al medical problems are known or treated. Please be certain the ED has a correct phone number & address where you can be reached. 2. Acknowledgement that you will arrange for follow-up care as recommended. 3. Authorization for the Emergency Physician to provide information to your follow-up Physician in order to maximize your care. AT ANY TIME, IF YOUR SYMPTOMS CHANGE SIGNIFICANTLY OR WORSEN OR YOU DEVELOP NEW SYMPTOMS, RETURN TO THE EMERGENCY DEPARTMENT IMMEDIATELY FOR RE-EVALUATION. OUR GOAL IS TO PROVIDE EXCELLENT MEDICAL CARE! WE HOPE THAT WE HAVE MET YOUR EXPECTATIONS DURING YOUR EMERGENCY DEPARTMENT VISIT AND THAT YOU FEEL YOU HAVE RECEIVED EXCELLENT CARE! Fracture Proximal Humerus There is a fracture at the upper end of the humerus, near the shoulder joint. Your physician has assessed the fracture's severity and has determined that it will heal well without surgery or "setting." The typical shoulder fracture doesn't need a cast. It's best treated by binding the arm down with a special sling. Ice packs are used to reduce pain and swelling. After early healing has occurred, [id number] exercises are prescribed for the shoulder. Complete healing may take three to six weeks, depending on the age of the patient and the severity of the fracture. Call the doctor or return at once if the arm becomes numb, or if pain or swelling become severe. Prescriptions: Oxycodone HCl/Acetaminophen [Percocet 5-325 mg Tablet] 1 tab PO Q6HP PRN #20 tab PRN Reason: pain Referrals: TOLU ANSARI PA [Primary Care Provider] - Follow up as needed GARETH ENGEL MD [ACTIVE PROVISIONAL STAFF] - 05/08/20 (call Dr. Engel's office on 05/08/2020 to schedule follow up appointment) I personally performed the services described in the documentation, reviewed and edited the documentation which was dictated to the scribe in my presence, and it accurately records my words and actions.
[2020-05-08] MEDS ORDERED: HYDROMORPHONE HCL INJ/PF 2 MG/ML AMPULE IV ONE ×2 (00:38→02:44)
[2020-05-08] MEDS ORDERED: HYDROCODONE/ACETAMINOPHEN 5-325 MG (6 TAB/ER DISP) PO PRN (00:53)
--- NOTE | 2020-05-08 01:15 | RADIOLOGY REPORT (SQ) ---
EXAM DESCRIPTION: XR CLAVICLE COMPLETED DATE/TME: 05/07/2020 23:35 CLINICAL HISTORY: 39 years, Female, S/P FALL, ? A/C JOINT STEP-OFF COMPARISON: None. NUMBER OF VIEWS: TECHNIQUE: LIMITATIONS: None. FINDINGS: 2 views of the right clavicle were obtained. There is no evidence of clavicular fracture. The acromioclavicular joint appears intact. There is comminuted fracture of the humeral neck. IMPRESSION: Comminuted fracture of the humeral neck. No evidence of clavicular fracture. copyright 2010 [employer]- All Rights Reserved
--- NOTE | 2020-05-08 01:17 | RADIOLOGY REPORT (SQ) ---
EXAM DESCRIPTION: XR right SHOULDER 2 OR MORE VIEWS COMPLETED DATE/TME: 05/07/2020 23:34 CLINICAL HISTORY: 39 years, Female, S/P FALL, RT SHOULDER PAIN COMPARISON: None. NUMBER OF VIEWS: TECHNIQUE: LIMITATIONS: None. FINDINGS: There is comminuted fracture of the humeral neck, with some medial displacement. The glenohumeral joint appears intact. There is some calcification in the distal supraspinatus tendon, compatible with calcific tendinitis/tendinosis. The AC joint appears intact. IMPRESSION: Fracture of the humeral neck. Distal supraspinatus calcific tendinitis/tendinosis. copyright 2010 [employer]- All Rights Reserved
[2020-05-08 02:51] VITALS: BP 93/69
== END 2020-05-08 02:58 | disposition home or self-care (01) ==
LOC: ER 22:34
DX: S42.211A Unspecified displaced fracture of surgical neck of right humerus, initial encounter for closed fracture (principal); W19.XXXA Unspecified fall, initial encounter
CPT/HCPCS: 99283; 73000; 73030; 29105; J1885; J1170; J7030